=== PATIENT | male | born 1965 | race Caucasian/White ===

== ENCOUNTER 2017-10-03 08:52 | Day surgery (SDC) | payer MEDICAID ==
[~2017-10-03 08:52] MED LIST: ACETAMINOPHEN 1,000 MG/100 ML BTL IV ONE
[2017-10-03] MEDS ORDERED: LIDOCAINE 2% MDV (20MG/ML) 20ML VIAL IV ONE (08:53)
[2017-10-03] MEDS ORDERED: ONDANSETRON HCL IV 4 MG/2 ML VIAL IVP ONE (08:53)
[2017-10-03] MEDS ORDERED: DESFLURANE 240 ML BTL INH ONE (08:53)
[2017-10-03] MEDS ORDERED: MIDAZOLAM HCL 2MG/2ML VIAL IV ONE (08:53)
[2017-10-03] MEDS ORDERED: PROPOFOL 10 MG/ML VIAL IV ONE (08:53)
[2017-10-03] MEDS ORDERED: HYDROCODONE/APAP 7.5/325MG TABLET PO ONE (08:53)
[2017-10-03] MEDS ORDERED: FENTANYL PF 100MCG/2ML VIAL IV ONE (08:53)
--- NOTE | 2017-10-03 13:30 | Operative Note ---
DATE OF SURGERY: 10/03/2017 SURGEON: Ry Tapia DO REFERRING PROVIDER: MITA Loredo PREOPERATIVE DIAGNOSIS: Carpal tunnel syndrome of the right wrist. POSTOPERATIVE DIAGNOSIS: Carpal tunnel syndrome of the right wrist. OPERATIVE PROCEDURE: Decompression right median nerve of the wrist using 3.5 loop magnification. DESCRIPTION: This 52-year-old male was taken to the operating room and placed in the supine position on the operating room table. General anesthesia was induced. The right upper extremity was elevated, it was prepped with Hibiclens, and draped in the usual sterile fashion. It was exsanguinated and the tourniquet inflated to 250 mmHg. A palmar incision was utilized following the hypothenar crease and the level of the based of the webspace of the thumb to the flexor crease of the wrist. Dissection was carried down through the skin and subcutaneous tissue. Palmar fascia was divided in line with the skin incision to expose the flexor retinaculum and transverse carpal ligament. The former was punctured, split through its proximal margin, and then with the contents of the carpal tunnel under direct vision, the transverse carpal ligament was transected along its ulnar border and the radial flap was raised to expose the entire median nerve under the transverse carpal ligament. The recurrent motor branch of the median nerve was identified and found to be slightly more central than its usual radial position, but was found to be intact and otherwise normal. Some mild hourglass deformity of the median nerve was identified. The wound was then copiously irrigated and the tourniquet was released. Hemostasis obtained with the electrocautery, and the wound closed with interrupted 6-0 nylon sutures. Sterile dressings with plaster splint immobilization was applied with the wrist in slight dorsiflexion and the thumb in an adducted position. The patient was then taken to the recovery room in satisfactory condition. GROSS PATHOLOGY: Patient demonstrated mild hourglass deformity of the median nerve and somewhat of a more central position of the recurrent motor branch of the median nerve than its normal radial position. CC: MITA Loredo [facility]
== END 2017-10-03 12:10 | disposition home or self-care (01) ==
LOC: SUR 08:52
PROVIDERS: ATTEND Orthopaedic Surgery
DX: G56.01 Carpal tunnel syndrome, right upper limb (principal)
CPT/HCPCS: 64721; 01810; J2405; J3010

== ENCOUNTER 2018-11-06 10:38 | Day surgery (SDC) | payer MEDICAID ==
[~2018-11-06 10:38] MED LIST changes: -ACETAMINOPHEN 1,000 MG/100 ML BTL IV ONE; +CEFAZOLIN 2 Gram 2 GM/50 ML BAG IVPB ONE; +CELECOXIB 100 MG CAPSULE PO ONE; +FAMOTIDINE 20MG TABLET PO ONE; +MECLIZINE 25 MG TABLET PO ONE; +METOCLOPRAMIDE 10 MG TABLET PO ONE
[2018-11-06] MEDS ORDERED: FENTANYL PF 100MCG/2ML VIAL IV ONE (10:39)
[2018-11-06] MEDS ORDERED: ROPIVACAINE HCL (NAROPIN) /PF 5MG/ML 20ML VIAL IV ONE (10:39)
[2018-11-06] MEDS ORDERED: DEXAMETHASONE 4 MG/ML 1ML VIAL IVP ONE (10:39)
[2018-11-06] MEDS ORDERED: MIDAZOLAM HCL 2MG/2ML VIAL IV ONE (10:39)
[2018-11-06] MEDS ORDERED: PROPOFOL 10 MG/ML VIAL IV ONE (10:39)
[2018-11-06] MEDS ORDERED: LIDOCAINE 2% MDV (20MG/ML) 20ML VIAL IV ONE (10:39)
[2018-11-06] MEDS: RINGERS SOLUTION,LACTATED 1,000 ML IV SCH (14:00)
[2018-11-06] MEDS ORDERED: TRAMADOL HCL 50 MG TABLET PO PRN (14:00)
[2018-11-06] MEDS ORDERED: HYDROCODONE/APAP 5/325MG TABLET PO PRN (14:00)
[2018-11-06] MEDS ORDERED: AL HYDROX/MAG HYDROX 30ML UD PO PRN (14:00)
[2018-11-06] MEDS ORDERED: ACETAMINOPHEN 325 MG TAB PO PRN (14:00)
[2018-11-06] MEDS ORDERED: ONDANSETRON HCL IV 4 MG/2 ML VIAL IVP PRN (14:00)
[2018-11-06] MEDS ORDERED: ZOLPIDEM TARTRATE 5 MG TABLET PO PRN (14:00)
[2018-11-06] MEDS ORDERED: NALOXONE 0.4 MG/1 ML VIAL IVP PRN (14:00)
[2018-11-06] MEDS ORDERED: HYDROMORPHONE HCL 2 MG/ML VIAL IV PRN (14:00)
[2018-11-06] MEDS ORDERED: OXYCODONE HCL/APAP 5MG/325MG TABLET PO PRN ×2 (14:00)
[2018-11-06] MEDS ORDERED: DIPHENHYDRAMINE HCL 25 MG CAPSULE PO PRN (14:00)
[2018-11-06] MEDS ORDERED: SENNOSIDES/DOCUSATE SODIUM UD CAPSULE PO PRN (14:00)
[2018-11-06] MEDS ORDERED: METOCLOPRAMIDE HCL 10 MG/2 ML VIAL IVP PRN (14:00)
[2018-11-06] MEDS ORDERED: MAGNESIUM HYDROXIDE 30 ML UDC PO PRN (14:00)
--- NOTE | 2018-11-06 15:31 | Operative Note ---
DATE OF SURGERY: 11/06/2018 Surgeon: Ry Tapia DO PREOPERATIVE DIAGNOSIS: Primary osteoarthritis of the left knee. POSTOPERATIVE DIAGNOSIS: Primary osteoarthritis of the left knee. OPERATION: Left total knee arthroplasty. DESCRIPTION OF PROCEDURE: This 53-year-old male was taken to the operating room and placed in the supine position on the operating room table. A spinal anesthetic was administered. The left lower extremity was elevated. It was prepped with Hibiclens and draped in the usual sterile fashion. It was exsanguinated and the tourniquet inflated to 300 mmHg. All scrub personnel wore personal isolation suits. An anterior longitudinal midline incision was made after exsanguination and tourniquet elevation, and subsequently a medial parapatellar arthrotomy incision was performed. An intracondylar drill hole was made for the intramedullary alignment karin, and a 6-degree valgus 9 mm cut was made in the distal femur. The wafers of bone were removed and a sizing jig was affixed. The patient had somewhat of a medial-lateral anterior-posterior mismatch. A 65 fit well in the medial-lateral direction, possibly slightly too big in the anterior-posterior dimension but we checked the 62.5 and that was actually too small. Subsequently, the cuts were made with the 4-in-1 cutting block, pinned in 3 degrees of external rotation. A size 65 was used. We then directed our attention to the proximal tibia, and an extramedullary alignment guide was used to cut the proximal tibia referencing a 10 mm cut off the lateral tibial plateau. It was necessary to take an additional 2 mm of bone because of bone loss on the medial tibial plateau and we would not have gotten below the subchondral bone. Subsequently, a 3-degree posterior slope cut was made after the cutting block was appropriately pinned. The wafer of bone was removed. Remnants of the menisci and osteophytes were removed from the posterior aspect of the joint. The tibia was sized to a 75 and the stem punch was used. The wound copiously irrigated with pulse lavage lactated Ringer's solution. Flexion and extension gaps checked and found to be satisfactory. Trial components inserted and a size 12 mm bearing was seen to be the appropriate size. The patella was cut and restored to anatomic height with a 34 x 8.5 mm patella. A 65 CR femur was used. With the trial components in place, the knee was taken through range of motion. Excellent stability was noted, then all trial components were removed and the wound again irrigated with pulse lavage lactated Ringer's solution. All bony surfaces were dried and all components were cemented into place and excess cement removed after the insertion of each component. Initially the tibial baseplate was cemented followed by the insertion of the tibial bearing, then the femoral component, and finally the patella. Once the cement had hardened, the knee was again taken through range of motion and found to be stable with full extension and full flexion. The wound was again irrigated, suctioned, and a drain was placed through a separate stab incision. The arthrotomy incision was closed with a #2 Vicryl. The subcutaneous tissue was closed with 0 Vicryl and the skin was stapled. Sterile dressings applied with a Polar Care. The patient was taken to the recovery room in satisfactory condition. GROSS PATHOLOGY: This patient demonstrated severe full-thickness articular cartilage loss noted in the medial compartment with bone loss noted on the medial tibial plateau especially. The lateral compartment showed grade 2 changes with advanced degenerative change noted at the patella as well. Final components inserted were a [employer] Vanguard size 65 cruciate retaining femoral component, a 75 tibial baseplate, a 12 mm anterior stabilized E1 bearing, and a 34 x 8.5 mm patella was used. CC: MD RODNEY Major
[2018-11-06] MEDS: HYDROCODONE/APAP 5/325MG TABLET PO PRN ×2 (15:46→23:41)
[2018-11-06] MEDS ORDERED: TRANEXAMIC ACID 1,000 MG in 0.9 % SODIUM CHLORIDE 100ML 100 ML IVPB ONE (16:00)
[2018-11-06] MEDS: TRAMADOL HCL 50 MG TABLET PO PRN (19:44)
[2018-11-06] MEDS: CEFAZOLIN 2 Gram 2 GM/50 ML BAG IVPB SCH (19:45)
[2018-11-06] MEDS: ASPIRIN 325 MG TAB ENTERIC-COATED PO SCH (21:38)
[2018-11-07] MEDS: CEFAZOLIN 2 Gram 2 GM/50 ML BAG IVPB SCH ×2 (04:28→11:45)
[2018-11-07] MEDS: TRAMADOL HCL 50 MG TABLET PO PRN ×2 (04:41→15:50)
[2018-11-07] MEDS: RINGERS SOLUTION,LACTATED 1,000 ML IV SCH (08:08)
[2018-11-07] MEDS: ASPIRIN 325 MG TAB ENTERIC-COATED PO SCH (09:45)
[2018-11-07] MEDS: HYDROCODONE/APAP 5/325MG TABLET PO PRN (09:47)
[2018-11-07] MEDS ORDERED: SERTRALINE HCL 50 MG TABLET PO SCH (10:00)
[2018-11-07] MEDS ORDERED: CELECOXIB 100 MG CAPSULE PO SCH (10:00)
--- NOTE | 2018-11-07 12:01 | Rehab Evaluation ---
Patient Information - Patient Information Diagnosis: OA left knee Ordered Treatment: OT Evaluate and Treat Status: Initial Evaluation Surgery: Yes (left TKA) Date of Surgery: 11/06/18 Past Medical/Surgical Hx: PAST MEDICAL/SURGICAL HISTORY Past Surgical History RCTR PMH - Respiratory Hx Respiratory Disorders Yes Hx Sleep Apnea Yes Hx of CPAP No: "I dont use it anymore-I sleep on my side now(helps)" Comment: "a little bit raspy-allergies?" PMH - Cardiovascular Hx Cardiovascular Disorders No Exercise Tolerance Good PMH - Neuro Hx Neurological Disorders No Hx Weakness No Comment: has bilat carpal tunnel syndrome-numbness PMH - GI Hx Gastrointestinal Disorders Yes Hx Gastroesophageal Reflux Yes: rolaids prn/ or gasex PMH - Hx Genitourinary Disorders Yes Hx Kidney Stones Yes: 2009 PMH - Endocrine Hx Endocrine Disorders No PMH - Musculoskeletal Hx Musculoskeletal Disorders Yes Hx Arthritis Yes: LEFT KNEE AND HANDS PMH - Psych Hx Psychiatric Problems Yes Hx Anxiety No Hx Depression No Comment: sertraline for "anger management" PMH - Hematology/Oncology Hx Hematology/Oncology No Disorders Premorbid Status: Detail (Pt lives alone although he is planning to return to his mother or sisters home. His mothers home has 2 steps at the entrance, a tub /shower with grab bar and a standard height toilet. He will have assistance from family for all IADLs. He has a 2 wheeled walker and a straight cane.) Precautions: [place], Fall - Time With Patient Total Time Spent With Patient (Min): 50 Treatment Procedures: Detail (OT eval low complexity) Subjective Information - Subjective Information Per Patient Objective Data - Pain Pain Present: Yes (12/24) - Mental Status Patient Orientation: Oriented x3 - Visual Perception Appears within normal limits for therapeutic activities - ROM Within normal limits (Milo UE AROM WNL) - Strength/Tone Within normal limits (Milo UE strength WNL) - Coordination Appears within normal limits for therapeutic activities - Bed Mobility Independent (Ind with supine to sit and sit to supine.) - Transfers Independent (Ind with sit to stand from EOB and chair.) - Balance Balance Sitting: Good Balance Standing: Good - Sensation Intact - Gait Detail (Pt ambulating in room with 2 wheeled walker and SBA) - ADL's/IADL's Detail (Pt educated and able to demonstrate learning of modified LE dressing techniques including doffing briefs and slipper socks and donning underwear, pants, socks and tennis shoes. Reviewed kitchen and shower safety and modifications, pt verbalized understanding.) Therapy Assessment - Therapy Assessment Detail (Pt is Ind with modified LE dressing techniques.) Problem List - Problem List Occupational Therapy Problem List: Detail (No current IP OT problems identified. ) Goals - Goals Occupational Therapy Goals: No current IP OT goals identified. Prognosis - Prognosis Good Plan - Plan Occupational Therapy Plan: No further IP OT recommended. Thank you for this referral.
--- NOTE | 2018-11-07 12:10 | Rehab Evaluation ---
Patient Information - Patient Information Diagnosis: OA left knee Ordered Treatment: PT Evaluate and Treat Status: Initial Evaluation Surgery: Yes (left TKA) Date of Surgery: 11/06/18 Past Medical/Surgical Hx: PAST MEDICAL/SURGICAL HISTORY Past Surgical History RCTR PMH - Respiratory Hx Respiratory Disorders Yes Hx Sleep Apnea Yes Hx of CPAP No: "I dont use it anymore-I sleep on my side now(helps)" Comment: "a little bit raspy-allergies?" PMH - Cardiovascular Hx Cardiovascular Disorders No Exercise Tolerance Good PMH - Neuro Hx Neurological Disorders No Hx Weakness No Comment: has bilat carpal tunnel syndrome-numbness PMH - GI Hx Gastrointestinal Disorders Yes Hx Gastroesophageal Reflux Yes: rolaids prn/ or gasex PMH - Hx Genitourinary Disorders Yes Hx Kidney Stones Yes: 2009 PMH - Endocrine Hx Endocrine Disorders No PMH - Musculoskeletal Hx Musculoskeletal Disorders Yes Hx Arthritis Yes: LEFT KNEE AND HANDS PMH - Psych Hx Psychiatric Problems Yes Hx Anxiety No Hx Depression No Comment: sertraline for "anger management" PMH - Hematology/Oncology Hx Hematology/Oncology No Disorders Premorbid Status: Detail (Pt lives alone although he is planning to return to his mother or sisters home. His mothers home has 2 steps at the entrance, a tub /shower with grab bar and a standard height toilet. The patient has one step without a railing at his own home. He will have assistance from family for all IADLs. He has a 2 wheeled walker and is to aquire a straight cane.) Precautions: [place], Fall, Other (WBAT on the L LE.) - Time With Patient Total Time Spent With Patient (Min): 30 Treatment Procedures: Detail (Initial Evaluation, gait training, instruction in TKA HEP.) Subjective Information - Subjective Information Per Patient (The patient had no complaints of pain just aching of L knee.) Objective Data - Mental Status Patient Orientation: Oriented x3 - Visual Perception Appears within normal limits for therapeutic activities - ROM Not within normal limits (The patient's L knee AROM is limited as to be expected following surgery. All other LE AROM is WNL.) - Strength/Tone Not within normal limits (The patient's L LE strength was not tested s/p surgery however is WFL, patient was able to complete a SLR. R LE strength was WNL.) - Bed Mobility Independent (The patient was independent with supine to and from sit transfer.) - Transfers Independent (The patient was independent with sit to and from stand transfer.) - Balance Balance Sitting: Good Balance Standing: Good - Sensation Intact - Gait Detail (The patient ambulated independent with front wheeled walker a distance of 94 feet x 1 WBAT on the L LE. The patient ambulated on 3 steps with use of one railing with verbal cueing for proper technique with supervision for safety only. The patient was given written instructions to recall proper technique.) Therapy Assessment - Therapy Assessment Detail (The patient was independent with bed mobility, transfers and ambulation , with supervision for safety when ambulating on stairs. The patient has met all inpatient PT goals and is discharged from inpatient PT. The patient has requested Home PT secondary to transportation issues. Founder / Ceo was notified and is to talk with patient and physician.) Patient Education - Patient Education Teaching Topic: Exercise/Activity (The patient was independent with TKA HEP including : supine heel slides, gulteal sets, quad sets, hamstring sets, ankle pumps and SLR. The patient had difficulty isolating quad.) Response: Return Demonstration Teaching Method: Discussion, Demonstration, Handout Teaching Recipient: Patient Barriers To Learning: None Problem List - Problem List Physical Therapy Problem List: Detail (1) Decreased L knee AROM and L LE strength as to be expected following surgery. 2) Impaired ambulation s/p surgery and numerous gait deviations.) Occupational Therapy Problem List: Detail (No current IP OT problems identified. ) Goals - Goals Physical Therapy Goals: The patient has met all inpatient PT goals and is discharged from inpatient PT. Occupational Therapy Goals: No current IP OT goals identified. Plan - Plan Physical Therapy Plan: The patient has met all inpatient PT goals. The patient is requesting Home PT. Occupational Therapy Plan: No further IP OT recommended. Thank you for this referral.
--- NOTE | 2018-11-10 08:30 | Discharge Summary ---
DATE OF ADMISSION: 11/06/2018 DATE OF DISCHARGE: 11/07/2018 ADMITTING DIAGNOSIS: Osteoarthritis of the left knee. DISCHARGE DIAGNOSIS: Osteoarthritis of the left knee. OPERATIVE PROCEDURE: Elective left total knee arthroplasty. DESCRIPTION: This 53-year-old male was admitted to the hospital for elective total knee arthroplasty and tolerated the operative procedure well. The drain was removed the 5th postoperative day. He was able to clear physical therapy and his pain was controlled and he was ready for discharge. The patient will be discharged and was instructed on the use of his CASANDRA hose. He will have outpatient physical therapy. He was given a prescription for [place] 5/325 mg, #40, 1 every 4 hours as necessary for pain. He is to take aspirin 325 mg daily for 2 weeks. He was also given a prescription for Ultram 50 mg 1-2 every 6 hours as necessary for pain. He was given 60. Routine wound care instructions were given. He will follow up in my office in 2 weeks. Should he have any problems prior to being seen, he was instructed to call my office. RODNEY
== END 2018-11-07 17:15 | disposition home or self-care (01) ==
LOC: SUR 10:38 → MEDSURG 13:58 → SUR 11-07 17:15
PROVIDERS: ATTEND Orthopaedic Surgery
DX: M17.12 Unilateral primary osteoarthritis, left knee (principal); G47.33 Obstructive sleep apnea (adult) (pediatric)
CPT/HCPCS: 27447; 01402; 64447; J3010; J0690 ×2; J3490; J2795; J7120